=== PATIENT | male | born 1990 | race Caucasian/White ===

== ENCOUNTER 2016-12-03 00:16 | Emergency (ER) | payer OTHER ==
[~2016-12-03] VITALS: Ht 180.3 cm; Wt 71.2 kg
[2016-12-03 00:40] VITALS: BP 127/59
[2016-12-03] MEDS ORDERED: PRED50TA PO (01:23)
[2016-12-03] MEDS ORDERED: DIPH25CA58 PO (01:23)
--- NOTE | 2016-12-03 01:24 | PHYS DOC ---
Past Medical History Past Medical History: No Pertinent History Past Surgical History: No Surgical History Alcohol Use: Occasionally Drug Use: None Adult General Chief Complaint Chief Complaint: ALLERGIC REACTION HPI HPI This is a 26-year-old male who has an extensive rash throughout his body that has been there for the last several days. Patient does state the rash is mildly pruritic. He denies any shortness of breath, nausea, vomiting. He denies any significant history of allergies. Patient has not taken anything for his symptoms. He denies any history of recent travel. He denies any recent environmental exposure that could explain his symptoms. Patient states he is fully immunized. Review of Systems Review of Systems Constitutional: Denies fever or chills [] Eyes: Denies change in visual acuity, redness, or eye pain [] HENT: Denies nasal congestion or sore throat [] Respiratory: Denies cough or shortness of breath [] Cardiovascular: No additional information not addressed in HPI [] GI: Denies abdominal pain, nausea, vomiting, bloody stools or diarrhea [] : Denies dysuria or hematuria [] Musculoskeletal: Denies back pain or joint pain [] Integument: Has rash, has skin lesions [] Neurologic: Denies headache, focal weakness or sensory changes [] Endocrine: Denies polyuria or polydipsia [] Current Medications Current Medications Current Medications Medications (Trade) Dose Ordered Sig/Kevyn Start Time Stop Time Status Last Admin Dose Admin Dexamethasone Sodium Phosphate (Decadron) 10 mg 1X ONCE 12/03/16 01:30 12/03/16 01:31 DC 12/03/16 01:54 10 MG Diphenhydramine HCl (Benadryl) 25 mg 1X ONCE 12/03/16 01:30 12/03/16 01:31 DC 12/03/16 01:54 25 MG Famotidine (Pepcid) 20 mg 1X ONCE 12/03/16 01:30 12/03/16 01:31 DC 12/03/16 01:54 20 MG Allergies Allergies Allergies Coded Allergies Type Severity Reaction Last Updated Verified No Known Drug Allergies 12/03/16 No Physical Exam Physical Exam Constitutional: Well developed, well nourished, no acute distress, non-toxic appearance. [] HENT: Normocephalic, atraumatic, bilateral external ears normal, oropharynx moist, no oral exudates, nose normal. [] Eyes: PERRLA, EOMI, conjunctiva normal, no discharge. [] Neck: Normal range of motion, no tenderness, supple, no stridor. [] Cardiovascular:Heart rate regular rhythm, no murmur [] Lungs & Thorax: Bilateral breath sounds clear to auscultation [] Abdomen: Bowel sounds normal, soft, no tenderness, no masses, no pulsatile masses. [] Skin: Warm, dry, no erythema, diffuse macular rash c/w likely allergic reaction. [] Back: No tenderness, no CVA tenderness. [] Extremities: No tenderness, no cyanosis, no clubbing, ROM intact, no edema. [] Neurologic: Alert and oriented X 3, normal motor function, normal sensory function, no focal deficits noted. [] Psychologic: Affect normal, judgement normal, mood normal. [] Current Patient Data Vital Signs Vital Signs Date Time Temp Pulse Resp B/P Pulse Ox O2 Delivery O2 Flow Rate FiO2 12/03/16 00:40 97.4 88 18 127/59 96 Room Air 97.4 EKG EKG [] Radiology/Procedures Radiology/Procedures [] Course & Med Decision Making Course & Med Decision Making Pertinent Labs and Imaging studies reviewed. (See chart for details) This 26-year-old male will be discharged with a course of prednisone and Benadryl as I believe his symptoms are likely allergic in etiology and will respond to this treatment. I did residential youth counselor him that he will need to follow up closely next several days and that of his symptoms do not resolve he may need a dermatology consult to be evaluated for the source of his symptoms. There is no indication at this time to perform any laboratory workup. He was discharged without incident. Dragon Disclaimer Dragon Disclaimer This electronic medical record was generated, in whole or in part, using a voice recognition dictation system. Departure Departure Impression: Primary Impression: Rash due to allergy Disposition: 01 HOME, SELF-CARE Condition: IMPROVED Referrals: NO PCP (PCP) Patient Instructions: Rash, [id number] Additional Instructions: Please take your steroid and benadryl as prescribed. Return to the ER if you develop any worsening of your symptoms. Follow up with your primary doctor in the next 2-3 days for your symptoms. Scripts Diphenhydramine Hcl (Benadryl)25 Mg [id number] Mg PO Q6-8HRS PRN ITCHING #20 Prov:HACKMAN,ELVIS E DO 12/03/16 Prednisone 50 Mg [id number] Mg PO DAILY #5 TAB Prov:ELVIS VALENTIN DO 12/03/16 ELVIS VALENTIN DO Dec 03, 2016 01:23
[2016-12-03] MEDS ORDERED: DEXAMETHASONE SOD PHOS 20 MG/5 ML VIAL. IM ONE (01:30)
[2016-12-03] MEDS ORDERED: FAMOTIDINE 20 MG TABLET. PO ONE (01:30)
[2016-12-03] MEDS ORDERED: DIPHENHYDRAMINE 50 MG/ML VIAL IM ONE (01:30)
== END 2016-12-03 02:09 | disposition home or self-care (01) ==
LOC: ER 00:16
DX: T78.40XA Allergy, unspecified, initial encounter (principal); X58.XXXA Exposure to other specified factors, initial encounter
CPT/HCPCS: 96372; 99284; J1100; J1200